=== PATIENT | male | born 1990 | race African-American/Black ===

== ENCOUNTER 2017-12-26 12:49 | Emergency (ER) | payer OTHER, MEDICAID ==
[2017-12-26] MEDS: HYDROCODONE/APAP (10/325) TAB PO ×2 (14:30→17:52)
[2017-12-26] MEDS: PROPOFOL 200 MG INJ IV (16:07)
== END 2017-12-26 18:00 | disposition home or self-care (01) ==
LOC: FTE 12:49 → E/R 18:00
DX: S53.124A Posterior dislocation of right ulnohumeral joint, initial encounter (principal); S42.451A Displaced fracture of lateral condyle of right humerus, initial encounter for closed fracture; J45.909 Unspecified asthma, uncomplicated; F17.210 Nicotine dependence, cigarettes, uncomplicated; R40.2142 Coma scale, eyes open, spontaneous, at arrival to emergency department; R40.2252 Coma scale, best verbal response, oriented, at arrival to emergency department; R40.2362 Coma scale, best motor response, obeys commands, at arrival to emergency department; W18.39XA Other fall on same level, initial encounter; Y92.9 Unspecified place or not applicable
CPT/HCPCS: 24600; 73060-RT; 73080-RT; 73090-RT; 99285-25

== ENCOUNTER 2018-04-25 08:31 | Emergency (ER) | payer OTHER | END 2018-04-25 09:13 | disposition home or self-care (01) | LOC: FTE 08:31 | DX: R05 Cough (principal); J45.909 Unspecified asthma, uncomplicated; Z87.891 Personal history of nicotine dependence | CPT/HCPCS: 99283; Z7502 ==